=== PATIENT | female | born 1985 ===

== ENCOUNTER → 2018-04-19 18:14 | Outpatient (REF) | payer OTHER, SELFPAY | LOC: LAB 18:14 | PROVIDERS: Visit Provider Otolaryngology | DX: H60.391 Other infective otitis externa, right ear (principal); H93.19 Tinnitus, unspecified ear; H92.01 Otalgia, right ear; H91.93 Unspecified hearing loss, bilateral | CPT/HCPCS: 87070; 87077; 87147; 87186; 87205 ==